=== PATIENT | male | born 1965 | race Two or more races ===

== ENCOUNTER 2023-07-02 08:59 | Outpatient (AMB) | payer OTHER, SELFPAY ==
[2023-07-02 09:02] VITALS: BP 136/90; PULSE 61; RESP 14; TEMP 36.6; O2SAT 99; BMI 32.4
--- NOTE | 2023-07-02 09:02 | A.OFFPC_ITS ---
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 Required: No Accompanied by: Self / Same As Patient Allergies Seasonal Allergies Allergy (Intermediate, Verified 07/02/23 09:23) Nasal congestion Medication List - Last Reconciled 07/02/23 by Cristian Brand CNP fluticasone propionate 50 mcg/actuation (Allergy Relief (fluticasone)) 1 spray intranasal BID Tobacco use date assessed: 07/02/23 Dental Screening Dental Screen Date: 07/02/23 Did you have a dental visit in the last 12 months?: Yes Did you have a dental problem in the last 6 months where you did not have access to dental care?: No Was dental information given to patient?: Patient has dentist HPI HPI Comments History of Present Illness Details New patient Prior PCP:?Mony Charlton, [facility] Last office visit/CPE/labs: About 2 years Acute issue(s): Type 2 diabetes - diagnosed in 2014. He was prescribed a pill which he took for 6 months because he lost 70 lb and became healthier. His last eye exam was five years ago Respiratory symptoms -He notes that he developed severe sympt oms (sore throat, body aches, nasal congestion, cough while lying down) when he and his flew back from [place] a week ago. He tested negative for COVID. His symptoms have significantly improved. He is currently experiencing mild sore throat, and productive cough while lying down at night. He has been using Flonase and taking Mucinex and Sudafed with improvement. No headache, body aches, fever, chills, fatigue, or weakness. PMHx: Type 2 diabetes, seasonal allergies SurgHx: None FHx: Mom: HTN, DM2, asthma, HLD SocHx: Former smoker. Drinks alcohol occasionally. No recreational drugs. 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 1. Little interest or pleasure in doing things: not at all 2. Feeling down, depressed, or hopeless: not at all 3. Trouble falling or staying asleep, or sleeping too much: nearly every day 4. Feeling tired or having little energy: nearly every day 5. Poor appetite or overeating: several days 6. Feeling bad about yourself - or that you are a failure or have let yourself or your family down: not at all 7. Trouble concentrating on things, such as reading the newspaper or watching television: not at all 8. Moving or speaking so slowly that other people could have noticed. Or the opposite - being so fidgety or restless that you have been moving around a lot more than usual: not at all 9. Thoughts that you would be better off or of hurting yourself in some way: not at all Total score: 7 Depression Screening Interpretation: Positive Depression Screening Done: Yes 40194 - PHQ-9 Billing: Yes Source: Developed by Drs. Danny Freitas, Rosi Anders, Hitesh Narvaez and colleagues, with an educational neisha from [employer]. Thrive Questionnaire Date Thrive assessed: 07/02/23 I am a: Patient What is your living situation today?: I have a steady place to live Within the past 12 months, did the food you bought not last and you didn't have the money to get more?: Never true Within the past 12 months, did you worry whether your food would run out before you got money to buy more?: Never true Do you have trouble paying for medicines?: No Do you have trouble getting transportation to medical appointments?: No Do you have trouble paying your heating and electricity bill?: No Do you have trouble taking care of your child, family member or friend?: No Do you have trouble with day-to-day activities such as bathing, preparing meals, shopping, managing finances, etc.?: No Are you currently unemployed and looking for a job?: No Are you interested in more education?: No Please select the resources that you would like help with: None Currently or been in a relationship where the following occur: no concerns reported THRIVE Score: 0 AUDIT C Alcohol Use Questionnaire (AUDIT-C) 1. How often do you have a drink containing alcohol?: Monthly or less 2. How many drinks containing alcohol do you have on a typical day when you are drinking?: 1 or 2 3. How often do you have six or more drinks on one occasion?: Never Total Score: 1 WALESKA-7 AMB Questionnaire WALESKA-7 Date WALESKA - 7 assessed: 07/02/23 Feeling nervous, anxious, or on edge: 0 = Not at all Not being able to stop or control worryin = Not at all Worrying too much about different things: 1 = Several days Trouble relaxin = Several days Being so restless that it is hard to sit still: 1 = Several days Becoming easily annoyed or irritable: 0 = Not at all Feeling afraid as if something awful might happen: 0 = Not at all Total WALESKA-7 score (0-4 normal; 5-9 mild; 10-14 moderate; 15-21 severe): 3 Source: Developed by Drs. Danny Freitas, Rosi Anders, Hitesh Narvaez and colleagues, with an educational neisha from [employer]. WALESKA-7 Assessment Billing WALESKA-7 Assessment Tool: WALESKA-7 Assessment 32140 Review of Systems Const Details: Const Denies chills, Denies fatigue, Denies fever(s), Denies headache(s) and Denies weakness ENT Reports as per HPI Card Denies chest pain, Denies lightheadedness, Denies dyspnea and Denies other (Palpitations) Resp Denies cough, Denies dyspnea, Denies wheezing and Denies other ( shortness of breath) GI Denies abdominal pain, Denies melena, Denies hematochezia, Denies change in bowel habits, Denies dyspepsia and Denies nausea Denies hematuria and Denies dysuria Musc Denies abnormal gait, Denies myalgias, Denies arthralgias, Denies numbness and Denies tingling Skin/Breast Denies rash, Denies unusual bruising and Denies wounds Neuro Denies abnormal gait, Denies dizziness, Denies headache(s), Denies memory loss, Denies numbness, Denies Sensory deficit (Neuro), Denies tingling and Denies weakness Psych Denies anxiety, Denies depression, Denies memory loss Endo Denies cold intolerance, Denies fatigue, Denies heat intolerance, Denies polydipsia and Denies polyuria Aller/Immun Denies wheezing Physical exam (Primary Care) Vital Signs: Last Vital Signs Temp 98 F 07/02/23 09:02 Pulse 61 07/02/23 09:02 Resp 14 07/02/23 09:02 BP 136/90 H 07/02/23 09:02 Pulse Ox 99 07/02/23 09:02 Oxygen Delivery Method Room Air 07/02/23 09:02 BMI result Body Mass Index 32.4 Tobacco/Smoking Status: Tobacco use Status Tobacco use date assessed 07/02/23 07/02/23 09:16 Patient Tobacco Use Status Former Tobacco user 07/02/23 09:16 e-Cigarette/Vaping Use Never Used 07/02/23 09:16 PHQ-9: PHQ-9 Score PHQ-9: Total score 7 07/02/23 09:16 Depression Screening Interpretation: Positive Thrive Assessment: Date of Thrive Assessment Date Thrive assessed 07/02/23 07/02/23 09:16 Currently or been in a relationship where the following occur: no concerns reported Const Other: General: no acute distress and well developed Nutritional Appearance: well nourished Orientation/consciousness: patient oriented x3 HENMT Head: Yes normocephalic and Yes atraumatic Eyes General: appearance normal, both eyes and all related structures Pupils: Equal, round and reactive pupils present EOM: EOMs intact bilaterally Resp Effort & Inspection: normal respiratory effort Auscultation: clear to auscultation bilaterally Cardio Rate: regular rate Rhythm: regular rhythm Heart sounds: S1 normal heart sound present, S2 normal heart sound present, no gallops, no murmurs and no rubs GI Palpation (GI): No Abdominal aortic bruit present, Soft to palpation, nontender, No hepatosplenomegaly present and No Rebound tenderness present Auscultation: normal bowel sounds General: Yes no CVA tenderness Back/Spine/Pelvis Back: no CVA tenderness Cervical Spine: cervical ROM normal and No Cervical spine tenderness Thoracic/Lumbar Spine: thoraco-lumbar ROM normal, No pain with thoraco-lumbar ROM, No thoracic spinal tenderness and No lumbar spinal tenderness Extrem General: Yes normal to inspection, No edema and No calf tenderness Skin General: warm and dry. Normal skin color. Normal skin turgor Neuro General: patient oriented x3, gait normal and no focal neuro deficit Cranial nerves: Yes Equal, round and reactive pupils present Cognition (Neuro): normal cognition Gait exam (Neuro): Normal gait present Sensory Exam: No Sensory deficit (Neuro) Psych Appearance: grossly normal Affect: normal affect Attitude: cooperative Thought process: Normal thought process present Results AMB Hemoglobin A1c AMB Hemoglobin A1c 6.2 % Last Edit by PRIMO Alexandre on 07/02/23 09:2 8 Assessment and Plan Assessment & Plan (1) Type 2 diabetes mellitus: Code(s): E11.9 - Type 2 diabetes mellitus without complications Plan: Diagnosed in 2014. He was prescribed medications but never took them A1c today is 6.2%, within goal of less than 7.0% ADA diet and routine exercise encouraged Will recheck A1c in 3 months Advised to get fasting blood work done and follow-up in 1 month for an extended physical exam Referred to Ophthalmology for diabetic eye exam Return sooner with symptoms or concerns Verbalized understanding and agreed with the treatment plan (2) Elevated blood pressure reading without diagnosis of hypertension: Code(s): R03.0 - Elevated blood-pressure reading, without diagnosis of hypertension Plan: Resting blood pressure is 136/90, above goal of less than 130/80 Low-sodium diet and routine exercise encouraged Will continue to monitor Follow-up in 1 month Verbalized understanding and agreed with the plan (3) Viral upper respiratory illness: Code(s): J06.9 - Acute upper respiratory infection, unspecified Plan: Likely viral illness though possibly allergies. No exam evidence of bacterial infection Viral illness There is no antibiotic medication for viruses.? They must run their course.? Most average 5-7 days but 7-10 days is not uncommon and up to 14 days is still possible.? A cough is often the last symptom to resolve and this can last for weeks in some cases. Rest Hydrate well -? Drink plenty of fluids.? Especially water. Tylenol or ibuprofen for muscle aches, headache, fever/discomfort May take Zyrtec daily Cannot rule out COVID-19/RSV/Flu infection Nasal swab acquired and will be sent to the lab Return for new or worsening symptoms Verbalized understanding and agreed with treatment plan. (4) Laboratory tests ordered as part of a complete physical exam (CPE): Code(s): Z00.00 - Encounter for general adult medical examination without abnormal findings Plan: Fasting labs ordered in preparation of a complete physical exam. Advised to fast for at least 10 hours before getting labs drawn. May drink water Verbalized understanding and agreed with treatment plan. Orders: Orders AMB Hemoglobin A1c Today Z13.9 - Encounter for screening, unspecified SARS-CoV2/FLU/RSV Today R09.89 - Other specified symptoms and signs involving the circulatory and respiratory systems Comprehensive [place]. Panel Fast Today E11.9 - Type 2 diabetes mellitus without complications UA CC w/rflx Micro + Cult Today Z00.00 - Encounter for general adult medical examination without abnormal findings PSA, Ultra Sensitive Today E11.9 - Type 2 diabetes mellitus without complications Complete Blood Count Auto Diff Today Z00.00 - Encounter for general adult medical examination without abnormal findings Lipid Panel Today E11.9 - Type 2 diabetes mellitus without complications TSH reflex Free T4 Today Z00.00 - Encounter for general adult medical examination without abnormal findings Microalbumin, Random (w Creat) Today E11.9 - Type 2 diabetes mellitus without complications Referrals Ophthalmology Referral E11.9 - Type 2 diabetes mellitus without complications Coding Level of Care Code New Pt Level 4 (21459) Diagnoses Type 2 diabetes mellitus E11.9 Elevated blood pressure reading without diagnosis of hypertension R03.0 Viral upper respiratory illness J06.9 Laboratory tests ordered as part of a complete physical exam (CPE) Z00.00 Additional Codes WALESKA-7 Assessment Billing - WALESKA-7 Assessment Tool: WALESKA-7 Assessment 41722 ([id number])
== END 2023-07-02 09:48 | disposition home or self-care (01) ==
PROVIDERS: Visit Provider Nurse Practitioner Family
DX: E11.9 Type 2 diabetes mellitus without complications (principal); R03.0 Elevated blood-pressure reading, without diagnosis of hypertension; J06.9 Acute upper respiratory infection, unspecified
CPT/HCPCS: 83036; 99204

== ENCOUNTER 2023-07-02 09:18 | Outpatient (REF) | payer OTHER, SELFPAY ==
[2023-07-02 12:50] LABS: Influenza A PCR NEGATIVE (Negative); Influenza B PCR NEGATIVE (Negative); Resp Syncy Virus RNA Qual PCR NEGATIVE (Negative); SARS COV2 PCR INHOUSE NEGATIVE (Negative)
== END 2023-07-02 09:19 | disposition home or self-care (01) ==
LOC: HO.LAB 09:18
PROVIDERS: Visit Provider Nurse Practitioner Family
DX: R09.89 Other specified symptoms and signs involving the circulatory and respiratory systems (principal)
CPT/HCPCS: 0241U

== ENCOUNTER 2023-07-06 07:17 | Outpatient (REF) | payer OTHER, SELFPAY ==
[2023-07-06 11:29] LABS: MANUAL DIFF FLAG NO
[2023-07-06 11:35] LABS: Basophils Absolute Auto 0.1 X10*3/uL (0.0-0.2); Eosinophils Absolute Auto 0.1 X10*3/uL (0.0-0.4); Eosinophils Percent Auto 2.7 % (0-4); Hematocrit 47.2 % (42.0-52.0); Hemoglobin 16.8 g/dl (14.0-18.0); Imm Gran Abs Auto 0.07 X10*3/uL (0.00-0.03); Imm Gran Pct Auto 1.5 % (0.0-0.4); Lymphocytes Absolute Auto 2.1 X10*3/uL (1.2-4.9); Lymphocytes Percent Auto 43.1 % (20-40); Mean Corpuscular HGB Conc 35.6 g/dl (31.0-36.0); Mean Corpuscular Hemoglobin 29.9 pg (27.0-33.0); Mean Platelet Volume 9.9 fL (9.4-12.4); Monocytes Absolute Auto 0.5 X10*3/uL (0.1-1.2); Monocytes Percent Auto 9.8 % (2-11); Neutrophils Percent Auto 41.9 % (45-73); Platelet Count 298 X10*3/uL (160-400); Red Blood Count 5.62 X10*6/uL (4.60-5.80); Red Cell Distribution Width 12.2 % (11.0-16.0); White Blood Count 4.8 X10*3/uL (4.8-10.8)
[2023-07-06 11:37] LABS: Appearance Urine Clear; Color Urine Yellow; Glucose Urine UA Negative (Negative); Leukocyte Esterase Urine Negative (Negative); Nitrite Urine Negative (Negative); PH 5.5 (5.0-9.0); Specific Gravity - Urine 1.025 (1.005-1.025); Urine Blood Negative (Negative); Urine Ketones Negative (Negative); Urine Protein Negative (Neg-Trace)
[2023-07-06 12:03] LABS: Alanine Aminotransferase 39 U/L (0-40); Albumin Level 4.1 g/dL (3.5-5.0); Alkaline Phosphatase 73 U/L (39-117); Anion Gap 11 (12-20); Aspartate Amino Transferase 26 U/L (5-37); Bilirubin Total 0.8 mg/dL (0.0-1.0); Blood Urea Nitrogen 19 mg/dL (9-16); Carbon Dioxide 25 mmol/L (22-29); Chloride 107 mmol/L (96-108); Cholesterol 175 mg/dL (<200); Estimated Glomerular Filt Rate > 60; Glucose Fasting 132 mg/dL (60-99); HDL Cholesterol 39 mg/dL (>40); LDL Cholesterol Calculated 117 mg/dL (<100); Potassium 4.2 mmol/L (3.3-5.1); Sodium 139 mmol/L (135-145); Total Protein 7.1 g/dL (6.5-8.0); Triglycerides 95 mg/dL (<150)
[2023-07-06 12:05] LABS: TSH reflex Free T4 0.84 uIU/mL (0.32-4.0)
[2023-07-06 13:08] LABS: Creatinine Urine 193.05 mg/dL; Microalbum/Creatinine Ratio Ur 4.6 ug/mg cr (<30)
[2023-07-11 20:32] LABS: PSA, Ultra Sensitive 0.42 ng/mL
== END 2023-07-06 07:18 | disposition home or self-care (01) ==
LOC: HO.WFDLDS 07:17
PROVIDERS: Visit Provider Nurse Practitioner Family
DX: Z00.00 Encounter for general adult medical examination without abnormal findings (principal); Z12.5 Encounter for screening for malignant neoplasm of prostate; E11.9 Type 2 diabetes mellitus without complications
CPT/HCPCS: 36415; 80053; 80061; 81003; 82043; 82570; 84153; 84443; 85025

== ENCOUNTER 2023-08-13 10:39 | Outpatient (AMB) | payer OTHER, SELFPAY ==
--- NOTE | 2023-08-13 10:43 | MHC.PC.OV ---
Vital Signs 08/13/23 10:44 08/13/23 10:49 08/13/23 11:15 Height 5 ft 10 in Weight 226 lb BMI 32.4 BP 140/70 H 130/70 120/72 Blood Pressure Location Rt brachial Rt brachial Rt brachial Position Sitting Sitting Sitting Pulse 57 Pulse Source Pulse Oximeter Pulse Oximetry (%) 97 Oxygen Delivery Method Room Air Intake Visit Reasons: CPE labs review Intake Note: Patient is here to follow up on CPE Lab review. Bariatric Physician Required: No [employer] Member: Not Required per policy Accompanied by: Self / Same As Patient Allergies Seasonal Allergies Allergy (Intermediate, Verified 08/13/23 11:03) Nasal congestion Tobacco use date assessed: 08/13/23 Dental Screening Dental Screen Date: 07/02/23 Did you have a dental visit in the last 12 months?: No Did you have a dental problem in the last 6 months where you did not have access to dental care?: Yes Was dental information given to patient?: Patient has dentist HPI HPI Comments History of Present Illness Details 58-year-old male presents for an extended physical exam and recent labs review. He has h/o diabetes which is well controlled. He is not currently on medication for his diabetes. He reports pain to his left upper molar with left jaw swelling for the past few days for which he has a dental appointment appointment today He also reports chronic persistent low back pain for the past 7 years. 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 He occasionally takes Tylenol with minimal relief. Last colonoscopy was over 10 years ago: benign polyps He has not had the shingles vaccines He is up-to-date on the flu vaccine [facility] Medical History (Updated 08/13/23 @ 11:38 by Cristian Brand CNP) Back disorder Type 2 diabetes mellitus Sinusitis Surgical History No pertinent past surgical history Family History Mother Asthma High blood pressure High cholesterol Diabetes Other Type 2 diabetes mellitus Social History Housing: House Patient Tobacco Use Status: Former Tobacco user e-Cigarette/Vaping Use: Never Used Second Hand Smoke Exposure: Yes service: No Current occupational status: employed 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 Danny Freitas, Rosi Anders, Hitesh Narvaez and colleagues, with an educational neisha from [employer]. Review of Systems Const Details: Denies chills, Denies fatigue, Denies fever(s), Denies headache(s) and Denies weakness HEENT Reports dental pain, Denies change in vision, Denies dizziness, Denies headache(s), Denies hearing loss, Denies nasal congestion, Denies sinus pain, Denies sinus pressure and Denies sore throat Card Denies chest pain, Denies lightheadedness, Denies dyspnea and Denies other (palpitations) Resp Denies cough, Denies dyspnea and Denies wheezing GI Denies abdominal pain, Denies melena, Denies hematochezia, Denies change in bowel habits, Denies dyspepsia and Denies nausea Denies hematuria and Denies dysuria Musc Reports low back pain, Denies abnormal gait, Denies numbness and Denies tingling Skin/Breast Denies rash, Denies unusual bruising and Denies wounds Neuro Denies abnormal gait, Denies dizziness, Denies headache(s), Denies memory loss, Denies numbness, Denies Sensory deficit (Neuro), Denies tingling and Denies weakness Psych Denies anxiety, Denies depression and Denies memory loss Endo Denies cold intolerance, Denies fatigue, Denies heat intolerance, Denies polydipsia and Denies polyuria Fadi/Lymph Denies easy bleeding and Denies easy bruising Aller/Immun Denies wheezing Physical exam (Primary Care) Vital Signs: Last Vital Signs Pulse 57 08/13/23 10:44 BP 130/70 08/13/23 10:49 Pulse Ox 97 08/13/23 10:44 Oxygen Delivery Method Room Air 08/13/23 10:44 BMI result Body Mass Index 32.4 Tobacco/Smoking Status: Tobacco use Status Tobacco use date assessed 08/13/23 08/13/23 10:50 Patient Tobacco Use Status Former Tobacco user 08/13/23 10:50 e-Cigarette/Vaping Use Never Used 08/13/23 10:50 Thrive Assessment: Date of Thrive Assessment Date Thrive assessed 07/02/23 08/13/23 10:50 Const Other: General: no acute distress, well developed, alert and awake Nutritional Appearance: well nourished Orientation/consciousness: patient oriented x3 HENMT Head: Yes normocephalic and Yes atraumatic Ears: hearing grossly normal bilaterally and TM's normal bilaterally General nose exam: Normal external nose present and Normal nares present Mouth: Normal oral and palatal mucosa present and moist mucous membranes Teeth and gingiva: dentition normal except for decay to #16 with slight gum and left jaw swelling Throat: Yes oropharynx normal Eyes Pupils: Equal, round and reactive pupils present and Pupil accommodation reflex normal EOM: EOMs intact bilaterally Neck Neck: Yes normal visual inspection, Yes no lymphadenopathy and Yes trachea midline Thyroid: Thyroid normal Carotids: no bruits Lymphatic: no lymphadenopathy noted Chest Chest palpation & inspection: normal inspection of the chest Resp Effort & Inspection: normal respiratory effort Auscultation: clear to auscultation bilaterally Cardio Rate: regular rate Rhythm: regular rhythm Heart sounds: S1 normal heart sound present, S2 normal heart sound present, no gallops, no murmurs and no rubs Bruits: no abdominal aortic bruits and no carotid bruits GI Palpation (GI): No Abdominal aortic bruit present, Soft to palpation, nontender, No hepatosplenomegaly present and No Rebound tenderness present Auscultation: normal bowel sounds General: Yes no CVA tenderness Back/Spine/Pelvis Back: no CVA tenderness Cervical Spine: cervical ROM normal and No Cervical spine tenderness Thoracic/Lumbar Spine: thoraco-lumbar ROM normal, No pain with thoraco-lumbar ROM, No thoracic spinal tenderness and positive lumbar spinal tenderness Skin General: warm and dry. Normal skin color. Normal skin turgor Lesions: no lesions Rashes: no rashes Trauma: no lacerations or abrasions Wounds: no wounds Nails: normal Neuro General: patient oriented x3, gait normal and CN's II-XI intact bilaterally Cranial nerves: Yes Equal, round and reactive pupils present Cognition (Neuro): normal cognition Gait exam (Neuro): Normal gait present Motor exam (neuro): 5/5 motor strength present throughout Sensory Exam: No Sensory deficit (Neuro) Deep tendon reflexes (DTR's): Right patellar reflex intensity grade: 2+ and Left patellar reflex intensity grade: 2+ Extrem General: Yes normal to inspection, No edema and No calf tenderness Psych Appearance: grossly normal Affect: normal affect Attitude: cooperative Thought process: Normal thought process present Assessment and Plan Assessment & Plan (1) Normal physical examination, routine: Code(s): Z00.00 - Encounter for general adult medical examination without abnormal findings Plan: Normal physical exam of 58-year-old male, no significant physical restrictions or limitations noted Healthy diet and routine exercise encouraged Encouraged to get vaccinated for shingles. He may request the vaccine from the local pharmacy Recent labs reviewed. LDL is 117, slightly above goal of less than 100, HDL is slightly low, 39. Advised to limit foods high in saturated fat and avoid foods high in trans fat Follow-up in 3 months for diabetes or return sooner with symptoms or concerns Verbalized understanding and agreed with treatment plan (2) Chronic low back pain: Code(s): M54.50 - Low back pain, unspecified; G89.29 - Other chronic pain Plan: Chronic persistent low back pain x7 years Likely due to prolonged standing and lifting heavy object from work Naproxen 500 mg twice daily as needed ordered. Advised to take as prescribed. Instructed on the risks, benefits, and potential adverse reactions of the medication Encouraged to avoid prolonged standing or heavy lifting Weight loss encouraged Instructed on proper body mechanics while lifting Warm/cool compresses encouraged X-ray ordered Follow-up with worsening or new symptoms Verbalized understanding and agreed with treatment plan (3) Toothache: Code(s): K08.89 - Other specified disorders of teeth and supporting structures Plan: Pain to his upper left molar for the past few days dentition normal except for decay to #16 with slight gum and left jaw swelling noted Advised to follow-up with dental as planned today Follow-up as needed Verbalized understanding and agreed with the treatment plan (4) Colon cancer screening: Code(s): Z12.11 - Encounter for screening for malignant neoplasm of colon Plan: Last colonoscopy was over 10 years ago: benign polyps Referred to [facility] gastroenterology for a colonoscopy Orders: Orders XR lumbar spine 2-3V Today G89.29 - Other chronic pain, M54.50 - Low back pain, unspecified Referrals Gastroenterology Referral Z12.11 - Encounter for screening for malignant neoplasm of colon Medications: New naproxen 500 mg PO BID PRN 60 tabs 3RF pain Coding Level of Care Code Est Pt Level 4 (59027) Est Pt Prev Care 40-64y(79524) Diagnoses Normal physical examination, routine Z00.00 Chronic low back pain M54.50; G89.29 Toothache K08.89 Colon cancer screening Z12.11
[2023-08-13 10:44] VITALS: BP 140/70; PULSE 57; O2SAT 97; BMI 32.4
[2023-08-13 10:49] VITALS: BP 130/70
[2023-08-13 11:15] VITALS: BP 120/72
== END 2023-08-13 11:29 | disposition home or self-care (01) ==
PROVIDERS: Visit Provider Nurse Practitioner Family
DX: Z00.00 Encounter for general adult medical examination without abnormal findings (principal); M54.50 Low back pain, unspecified; G89.29 Other chronic pain; K08.89 Other specified disorders of teeth and supporting structures; Z12.11 Encounter for screening for malignant neoplasm of colon
CPT/HCPCS: 99214; 99396

== ENCOUNTER 2023-11-23 07:48 | Outpatient (AMB) | payer OTHER, SELFPAY ==
--- NOTE | 2023-11-23 08:01 | MHC.PC.OV ---
Vital Signs 11/23/23 08:09 11/23/23 08:31 Height 5 ft 10 in Weight 229 lb 2 oz BMI 32.9 BP 138/82 130/80 Blood Pressure Location Lt brachial Lt brachial Position Sitting Sitting Respiration 16 Pulse 51 Pulse Source Pulse Oximeter Temp 98.8 F Temp Source Oral Pulse Oximetry (%) 95 Oxygen Delivery Method Room Air Intake Visit Reasons: a1c 3 denita dm Intake Note: patient here for 3 month follow up on DM. 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 He has not been exercising He offers no complaints and denies acute symptoms at this time [facility] Medical History (Updated 08/13/23 @ 11:38 by Cristian Brand CNP) Back disorder Type 2 diabetes mellitus Sinusitis Surgical History No pertinent past surgical history Family History Mother Asthma High blood pressure High cholesterol Diabetes Other Type 2 diabetes mellitus Social History Housing: House Patient Tobacco Use Status: Former Tobacco user e-Cigarette/Vaping Use: Never Used Second Hand Smoke Exposure: Yes service: No Current occupational status: employed Current occupation: [employer] for [employer] Cognitive needs: No Hearing needs: No Vision needs: Yes Questionnaire PHQ-9 Over the last 2 weeks, how often have you been bothered by any of the following problems? 1. Little interest or pleasure in doing things: not at all 2. Feeling down, depressed, or hopeless: not at all 3. Trouble falling or staying asleep, or sleeping too much: nearly every day 4. Feeling tired or having little energy: not at all 5. Poor appetite or overeating: not at all 6. Feeling bad about yourself - or that you are a failure or have let yourself or your family down: not at all 7. Trouble concentrating on things, such as reading the newspaper or watching television: not at all 8. Moving or speaking so slowly that other people could have noticed. Or the opposite - being so fidgety or restless that you have been moving around a lot more than usual: not at all 9. Thoughts that you would be better off or of hurting yourself in some way: not at all Total score: 3 Depression Screening Interpretation: Negative Depression Screening Done: Yes 28989 - PHQ-9 Billing: Yes Source: Developed by Drs. Danny Freitas, Rosi Anders, Hitesh Narvaez and colleagues, with an educational neisha from [employer]. Thrive Questionnaire Date Thrive assessed: 07/02/23 WALESKA-7 AMB Questionnaire WALESKA-7 Date WALESKA - 7 assessed: 07/02/23 Source: Developed by Drs. Danny Freitas, Rosi Anders, Hitesh Narvaez and colleagues, with an educational neisha from [employer]. Review of Systems Const Details: Const Denies chills, Denies fatigue, Denies fever(s), Denies headache(s) and Denies weakness ENT Denies dizziness and Denies headache(s) Card Denies chest pain, Denies lightheadedness, Denies dyspnea and Denies other (Palpitations) Resp Denies cough, Denies dyspnea, Denies wheezing and Denies other ( shortness of breath) GI Denies abdominal pain, Denies melena, Denies hematochezia, Denies change in bowel habits, Denies dyspepsia and Denies nausea Denies hematuria and Denies dysuria Musc Denies abnormal gait, Denies myalgias, Denies arthralgias, Denies numbness and Denies tingling Skin/Breast Denies rash, Denies unusual bruising and Denies wounds Neuro Denies abnormal gait, Denies dizziness, Denies headache(s), Denies memory loss, Denies numbness, Denies Sensory deficit (Neuro), Denies tingling and Denies weakness Psych Denies anxiety, Denies depression, Denies memory loss Endo Denies cold intolerance, Denies fatigue, Denies heat intolerance, Denies polydipsia and Denies polyuria Aller/Immun Denies wheezing Physical exam (Primary Care) Vital Signs: Last Vital Signs Temp 98.8 F 11/23/23 08:09 Pulse 51 11/23/23 08:09 Resp 16 11/23/23 08:09 BP 130/80 11/23/23 08:31 Pulse Ox 95 11/23/23 08:09 Oxygen Delivery Method Room Air 11/23/23 08:09 BMI result Body Mass Index 32.9 Tobacco/Smoking Status: Tobacco use Status Tobacco use date assessed 11/23/23 11/23/23 08:08 Patient Tobacco Use Status Former Tobacco user 11/23/23 08:01 e-Cigarette/Vaping Use Never Used 11/23/23 08:01 PHQ-9: PHQ-9 Score PHQ-9: Total score 3 11/23/23 08:14 Depression Screening Interpretation: Negative Thrive Assessment: Date of Thrive Assessment Date Thrive assessed 07/02/23 11/23/23 08:01 Const Other: General: no acute distress and well developed Nutritional Appearance: well nourished Orientation/consciousness: patient oriented x3 HENMT Head: Yes normocephalic and Yes atraumatic Eyes General: appearance normal, both eyes and all related structures Pupils: Equal, round and reactive pupils present EOM: EOMs intact bilaterally Resp Effort & Inspection: normal respiratory effort Auscultation: clear to auscultation bilaterally Cardio Rate: regular rate Rhythm: regular rhythm Heart sounds: S1 normal heart sound present, S2 normal heart sound present, no gallops, no murmurs and no rubs GI Palpation (GI): No Abdominal aortic bruit present, Soft to palpation, nontender, No hepatosplenomegaly present and No Rebound tenderness present Auscultation: normal bowel sounds General: Yes no CVA tenderness Back/Spine/Pelvis Back: no CVA tenderness Cervical Spine: cervical ROM normal and No Cervical spine tenderness Thoracic/Lumbar Spine: thoraco-lumbar ROM normal, No pain with thoraco-lumbar ROM, No thoracic spinal tenderness and No lumbar spinal tenderness Extrem General: Yes normal to inspection, No edema and No calf tenderness Skin General: warm and dry. Normal skin color. Normal skin turgor Neuro General: patient oriented x3, gait normal and no focal neuro deficit Cranial nerves: Yes Equal, round and reactive pupils present Cognition (Neuro): normal cognition Gait exam (Neuro): Normal gait present Sensory Exam: No Sensory deficit (Neuro) Psych Appearance: grossly normal Affect: normal affect Attitude: cooperative Thought process: Normal thought process present Results AMB Hemoglobin A1c AMB Hemoglobin A1c 5.9 % Last Edit by Deepa Carcamo on 11/23/23 10:46 Results Reviewed Results Reviewed: Laboratory Last Values Hgb A1c (Clinic) 5.9 % (4.0-6.0) 11/23/23 08:33 Assessment and Plan Assessment & Plan (1) Type 2 diabetes mellitus: Code(s): E11.9 - Type 2 diabetes mellitus without complications Plan: A1c today is 5.9%, within goal of less than 7.0%. Previous A1c was 6.2% ADA and low-sodium diet and routine exercise encouraged Advised to fast for 10-12 hours, may drink water only, and get lipid panel blood work done before his next visit Follow-up in three months or sooner with symptoms or concerns Verbalized understanding and agreed with treatment plan Orders: Orders Lipid Panel 3 Months E11.9 - Type 2 diabetes mellitus without complications AMB Hemoglobin A1c Today Z13.9 - Encounter for screening, unspecified Coding Level of Care Code Est Pt Level 3 (66502) Diagnoses Type 2 diabetes mellitus E11.9
[2023-11-23 08:09] VITALS: BP 138/82; PULSE 51; RESP 16; TEMP 37.1; O2SAT 95; BMI 32.9
[2023-11-23 08:31] VITALS: BP 130/80
== END 2023-11-23 08:32 | disposition home or self-care (01) ==
PROVIDERS: Visit Provider Nurse Practitioner Family
DX: E11.9 Type 2 diabetes mellitus without complications (principal); Z13.9 Encounter for screening, unspecified
CPT/HCPCS: 83036; 99213

== ENCOUNTER 2023-12-24 07:47 | Outpatient (REF) | payer OTHER, SELFPAY ==
[2023-12-24 12:00] LABS: Cholesterol 161 mg/dL (<200); HDL Cholesterol 43 mg/dL (>40); LDL Cholesterol Calculated 98 mg/dL (<100); Triglycerides 100 mg/dL (<150)
== END 2023-12-24 07:48 | disposition home or self-care (01) ==
LOC: HO.WFDLDS 07:47
PROVIDERS: Visit Provider Nurse Practitioner Family
DX: E11.9 Type 2 diabetes mellitus without complications (principal)
CPT/HCPCS: 36415; 80061

== ENCOUNTER 2024-02-25 08:17 | Outpatient (AMB) | payer OTHER, SELFPAY ==
--- NOTE | 2024-02-25 08:20 | MHC.PC.OV ---
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 Allergies Seasonal Allergies Allergy (Intermediate, Verified 02/25/24 08:46) Nasal congestion Medication List - Last Reconciled 02/25/24 by Cristian Brand CNP fluticasone propionate 50 mcg/actuation (Allergy Relief (fluticasone)) 1 spray intranasal BID naproxen 500 mg PO BID PRN Tobacco use date assessed: 02/25/24 Dental Screening Dental Screen Date: 02/25/24 Did you have a dental visit in the last 12 months?: Yes Did you have a dental problem in the last 6 months where you did not have access to dental care?: No Was dental information given to patient?: Patient has dentist HPI HPI Comments History of Present Illness Details The patient is a 58-year-old male presenting for follow-up of Type 2 Diabetes Mellitus, which is currently diet-controlled. The patient's last hemoglobin A1c was 5.9%, and the current reading is 6.2%, maintaining below the target of 7.0%. He is not on medication for diabetes management. The patient has expressed difficulty in controlling dietary intake, particularly with bread, pasta, and potatoes. He admitted to not regularly exercising and is concerned about maintaining lifestyle changes during the holiday season due to increased social gatherings and related dietary temptations. Additionally, the patient reports musculoskeletal chest pain localized to the left upper chest area. 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 The pain is alleviated to some extent by taking Naproxen and using warm compresses. The patient denies this being related to cardiac origin. 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 - Exercise: Not currently exercising. - Nutritional Intake: Difficulty in controlling intake of carbohydrates such as bread, pasta, and potatoes; consumes salads and fruits like grapes. - Family: Lives with , who recently hosted a gathering, leading to dietary challenges due to leftovers. Results - Labs: Hemoglobin A1c is 6.2%. 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 1. Little interest or pleasure in doing things: nearly every day 2. Feeling down, depressed, or hopeless: not at all 3. Trouble falling or staying asleep, or sleeping too much: nearly every day 4. Feeling tired or having little energy: nearly every day 5. Poor appetite or overeating: not at all 6. Feeling bad about yourself - or that you are a failure or have let yourself or your family down: not at all 7. Trouble concentrating on things, such as reading the newspaper or watching television: not at all 8. Moving or speaking so slowly that other people could have noticed. Or the opposite - being so fidgety or restless that you have been moving around a lot more than usual: not at all 9. Thoughts that you would be better off or of hurting yourself in some way: not at all Total score: 9 Depression Screening Interpretation: Positive Depression Screening Done: Yes Source: Developed by Drs. Danny Freitas, Rosi Anders, Hitesh Narvaez and colleagues, with an educational neisha from [employer]. Thrive Questionnaire Date Thrive assessed: 02/25/24 I am a: Patient What is your living situation today?: I have a steady place to live Within the past 12 months, did the food you bought not last and you didn't have the money to get more?: I choose not to answer this question Within the past 12 months, did you worry whether your food would run out before you got money to buy more?: I choose not to answer this question Do you have trouble paying for medicines?: I choose not to answer this question Do you have trouble getting transportation to medical appointments?: I choose not to answer this question Do you have trouble paying your heating and electricity bill?: I choose not to answer this question Do you have trouble taking care of your child, family member or friend?: I choose not to answer this question Do you have trouble with day-to-day activities such as bathing, preparing meals, shopping, managing finances, etc.?: I choose not to answer this question Are you currently unemployed and looking for a job?: I choose not to answer this question Are you interested in more education?: I choose not to answer this question Please select the resources that you would like help with: None Currently or been in a relationship where the following occur: I choose not to answer THRIVE Score: 0 AUDIT C Alcohol Use Questionnaire (AUDIT-C) 1. How often do you have a drink containing alcohol?: Monthly or less 2. How many drinks containing alcohol do you have on a typical day when you are drinking?: 1 or 2 3. How often do you have six or more drinks on one occasion?: Never Total Score: 1 WALESKA-7 AMB Questionnaire WALESKA-7 Date WALESKA - 7 assessed: 02/25/24 Feeling nervous, anxious, or on edge: 0 = Not at all Not being able to stop or control worryin = Not at all Worrying too much about different things: 0 = Not at all Trouble relaxin = Not at all Being so restless that it is hard to sit still: 0 = Not at all Becoming easily annoyed or irritable: 0 = Not at all Feeling afraid as if something awful might happen: 0 = Not at all Total WALESKA-7 score (0-4 normal; 5-9 mild; 10-14 moderate; 15-21 severe): 0 Source: Developed by Drs. Danny Freitas, Rosi Anders, Hitesh Narvaez and colleagues, with an educational neisha from [employer]. Review of Systems Const Details: Const Denies chills, Denies fatigue, Denies fever(s), Denies headache(s) and Denies weakness ENT Denies dizziness and Denies headache(s) Card Reports chest pain, Denies lightheadedness, Denies dyspnea and Denies other (Palpitations) Resp Denies cough, Denies dyspnea, Denies wheezing and Denies other ( shortness of breath) GI Denies abdominal pain, Denies melena, Denies hematochezia, Denies change in bowel habits, Denies dyspepsia and Denies nausea Denies hematuria and Denies dysuria Musc Reports as per HPI Skin/Breast Denies rash, Denies unusual bruising and Denies wounds Neuro Denies abnormal gait, Denies dizziness, Denies headache(s), Denies memory loss, Denies numbness, Denies Sensory deficit (Neuro), Denies tingling and Denies weakness Psych Denies anxiety, Denies depression, Denies memory loss Endo Denies cold intolerance, Denies fatigue, Denies heat intolerance, Denies polydipsia and Denies polyuria Aller/Immun Denies wheezing Physical exam (Primary Care) Vital Signs: Last Vital Signs Temp 98.4 F 02/25/24 08:25 Pulse 60 02/25/24 08:25 Resp 16 02/25/24 08:25 BP 121/78 02/25/24 08:25 Pulse Ox 96 02/25/24 08:25 Oxygen Delivery Method Room Air 02/25/24 08:25 BMI result Body Mass Index 33.6 Tobacco/Smoking Status: Tobacco use Status Tobacco use date assessed 02/25/24 02/25/24 08:29 Patient Tobacco Use Status Former Tobacco user 02/25/24 08:24 e-Cigarette/Vaping Use Never Used 02/25/24 08:24 PHQ-9: PHQ-9 Score PHQ-9: Total score 9 02/25/24 08:46 Depression Screening Interpretation: Positive Thrive Assessment: Date of Thrive Assessment Date Thrive assessed 02/25/24 02/25/24 08:24 Currently or been in a relationship where the following occur: I choose not to answer Const Other: General: no acute distress and well developed Nutritional Appearance: well nourished Orientation/consciousness: patient oriented x3 HENMT Head: Yes normocephalic and Yes atraumatic Eyes General: appearance normal, both eyes and all related structures Pupils: Equal, round and reactive pupils present EOM: EOMs intact bilaterally Resp Effort & Inspection: normal respiratory effort Auscultation: clear to auscultation bilaterally Cardio Rate: regular rate Rhythm: regular rhythm Heart sounds: S1 normal heart sound present, S2 normal heart sound present, no gallops, no murmurs and no rubs GI Palpation (GI): No Abdominal aortic bruit present, Soft to palpation, nontender, No hepatosplenomegaly present and No Rebound tenderness present Auscultation: normal bowel sounds General: Yes no CVA tenderness Back/Spine/Pelvis Back: no CVA tenderness Cervical Spine: cervical ROM normal and No Cervical spine tenderness Thoracic/Lumbar Spine: thoraco-lumbar ROM normal, No pain with thoraco-lumbar ROM, No thoracic spinal tenderness and No lumbar spinal tenderness Extrem General: Yes normal to inspection, No edema and No calf tenderness Skin General: warm and dry. Normal skin color. Normal skin turgor Neuro General: patient oriented x3, gait normal and no focal neuro deficit Cranial nerves: Yes Equal, round and reactive pupils present Cognition (Neuro): normal cognition Gait exam (Neuro): Normal gait present Sensory Exam: No Sensory deficit (Neuro) Psych Appearance: grossly normal Affect: normal affect Attitude: cooperative Thought process: Normal thought process present Results AMB Hemoglobin A1c AMB Hemoglobin A1c 6.2 % Last Edit by Deepa Carcamo on 02/25/24 08:51 Coding Level of Care Code Est Pt Level 4 (01055) Complex EM visit Add On G2211 Diagnoses Type 2 diabetes mellitus E11.9 Musculoskeletal chest pain R07.89 Assessment & Plan Assessment & Plan (1) Type 2 diabetes mellitus: Code(s): E11.9 - Type 2 diabetes mellitus without complications Category: Medical Plan: Continue current dietary management for diabetes. Encourage making healthier dietary choices and engage in regular physical exercise. Schedule follow-up in three months to re-evaluate hemoglobin A1c. Consider stricter interventions if A1c reaches 7% or above. (2) Musculoskeletal chest pain: Code(s): R07.89 - Other chest pain Category: Medical Plan: Continue with Naproxen and physical therapy involving warm compresses and stretching exercises to alleviate pain. Advise using massage tools for symptomatic relief as necessary. Monitor the condition and reassess if symptoms persist or worsen. Plan I discussed with the patient the importance of maintaining dietary control and the need to incorporate regular physical activity to manage his Type 2 Diabetes Mellitus effectively. We outlined dietary options that are low in carbohydrates and discussed preparation methods to make these choices more feasible, especially during the holidays. I emphasized the need to adhere to the management plan and the potential consequences of not achieving these goals, including the possible need for medication if the hemoglobin A1c increases. Regarding the musculoskeletal pain, we discussed the probable non-cardiac origin due to the location and improvement with Naproxen and physical therapy. I reassured the patient about the nature of the injury and the continued use of the recommended interventions. A return visit in three months was advised, or sooner if there is any change in symptoms. Orders: Orders AMB Hemoglobin A1c Today Z13.9 - Encounter for screening, unspecified Patient Instructions: - Follow a balanced diet low in carbohydrates, particularly avoiding excessive bread, pasta, and potatoes. - Incorporate regular physical activity into the daily routine. - Continue using Naproxen and warm compresses for chest pain relief. - Avoid activities that aggravate the chest pain. - Return for follow-up in three months, or sooner if there are changes in symptoms or concerns arise. - Monitor blood glucose levels and report any significant changes. Patient was informed and verbally consented to the use of an ambient scribe for clinic note documentation during this visit.
[2024-02-25 08:25] VITALS: BP 121/78; PULSE 60; RESP 16; TEMP 36.9; O2SAT 96; BMI 33.6
== END 2024-02-25 08:58 | disposition home or self-care (01) ==
PROVIDERS: PCP Nurse Practitioner Family; Visit Provider Nurse Practitioner Family
DX: E11.9 Type 2 diabetes mellitus without complications (principal); R07.89 Other chest pain; Z13.9 Encounter for screening, unspecified

== ENCOUNTER → 2024-02-25 08:17 | Outpatient (BNVA) | payer OTHER, SELFPAY | PROVIDERS: Visit Provider Nurse Practitioner Family | DX: E11.9 Type 2 diabetes mellitus without complications (principal); R07.89 Other chest pain | CPT/HCPCS: 83036; 96127; 99212 ==

== ENCOUNTER → 2024-05-05 10:51 | Outpatient (BNVA) | payer OTHER, SELFPAY | PROVIDERS: PCP Nurse Practitioner Family; Visit Provider Nurse Practitioner Family | DX: Z12.11 Encounter for screening for malignant neoplasm of colon (principal) | CPT/HCPCS: 99202 ==

== ENCOUNTER 2024-05-28 08:16 | Outpatient (AMB) | payer OTHER, SELFPAY ==
--- NOTE | 2024-05-28 08:32 | MHC.PC.OV ---
Vital Signs 05/28/24 08:58 05/28/24 09:26 Height 5 ft 10 in Weight 232 lb BMI 33.3 BP 140/76 H 138/80 Blood Pressure Location Rt brachial Lt brachial Position Sitting Sitting Respiration 16 Pulse 67 Pulse Source Pulse Oximeter Temp 98.5 F Temp Source Oral Pulse Oximetry (%) 96 Oxygen Delivery Method Room Air Intake Visit Reasons: 3 mos DM Intake Note: patient here for DM follow up and would like an ENT referral Alley Cleaner Required: No Allergies Seasonal Allergies Allergy (Intermediate, Verified 05/28/24 09:19) Nasal congestion Medication List - Last Reconciled 05/28/24 by Cristian Brand CNP bisacodyl (Dulcolax (bisacodyl)) 20 mg (4 x 5 mg) PO ONCE 1 day naproxen 500 mg PO BID PRN polyethylene glycol 3350 (Miralax) 238 grams PO ONCE Tobacco use date assessed: 05/28/24 Dental Screening Dental Screen Date: 05/28/24 Did you have a dental visit in the last 12 months?: Yes Did you have a dental problem in the last 6 months where you did not have access to dental care?: No Was dental information given to patient?: Patient has dentist HPI HPI Comments History of Present Illness Details 59-year-old male presents for diabetes follow-up. His diabetes is diet controlled. He admits to making healthy dietary choices, including low carbs, and exercising routinely. He reports sinus infection with nasal congestion and dry nares at least once a year. No acute symptoms at this time. 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 1. Little interest or pleasure in doing things: not at all 2. Feeling down, depressed, or hopeless: not at all 3. Trouble falling or staying asleep, or sleeping too much: not at all 4. Feeling tired or having little energy: not at all Source: Developed by Drs. Danny Freiats, Rosi Anders, Hitesh Narvaez and colleagues, with an educational neisha from [employer]. Thrive Questionnaire Date Thrive assessed: 02/18/24 I am a: Patient What is your living situation today?: I choose not to answer this question Within the past 12 months, did the food you bought not last and you didn't have the money to get more?: I choose not to answer this question Within the past 12 months, did you worry whether your food would run out before you got money to buy more?: I choose not to answer this question Do you have trouble paying for medicines?: I choose not to answer this question Do you have trouble getting transportation to medical appointments?: No Do you have trouble paying your heating and electricity bill?: No Do you have trouble taking care of your child, family member or friend?: I choose not to answer this question Do you have trouble with day-to-day activities such as bathing, preparing meals, shopping, managing finances, etc.?: I choose not to answer this question Are you currently unemployed and looking for a job?: I choose not to answer this question Are you interested in more education?: I choose not to answer this question Please select the resources that you would like help with: None Currently or been in a relationship where the following occur: I choose not to answer THRIVE Score: 0 AUDIT C Alcohol Use Questionnaire (AUDIT-C) 1. How often do you have a drink containing alcohol?: Never Total Score: 0 WALESKA-7 AMB Questionnaire WALESKA-7 Date WALESKA - 7 assessed: 02/25/24 Feeling nervous, anxious, or on edge: 0 = Not at all Not being able to stop or control worryin = Not at all Worrying too much about different things: 0 = Not at all Trouble relaxin = Not at all Being so restless that it is hard to sit still: 0 = Not at all Becoming easily annoyed or irritable: 0 = Not at all Feeling afraid as if something awful might happen: 0 = Not at all Total WALESKA-7 score (0-4 normal; 5-9 mild; 10-14 moderate; 15-21 severe): 0 Source: Developed by Drs. Danny Freitas, Rosi Anders, Hitesh Narvaez and colleagues, with an educational neisha from [employer]. Review of Systems Const Details: Const Denies chills, Denies fatigue, Denies fever(s), Denies headache(s) and Denies weakness ENT Denies dizziness and Denies headache(s) Card Denies chest pain, Denies lightheadedness, Denies dyspnea and Denies other (Palpitations) Resp Denies cough, Denies dyspnea, Denies wheezing and Denies other ( shortness of breath) GI Denies abdominal pain, Denies melena, Denies hematochezia, Denies change in bowel habits, Denies dyspepsia and Denies nausea Denies hematuria and Denies dysuria Musc Denies abnormal gait, Denies myalgias, Denies arthralgias, Denies numbness and Denies tingling Skin/Breast Denies rash, Denies unusual bruising and Denies wounds Neuro Denies abnormal gait, Denies dizziness, Denies headache(s), Denies memory loss, Denies numbness, Denies Sensory deficit (Neuro), Denies tingling and Denies weakness Psych Denies anxiety, Denies depression, Denies memory loss Endo Denies cold intolerance, Denies fatigue, Denies heat intolerance, Denies polydipsia and Denies polyuria Aller/Immun Denies wheezing Physical exam (Primary Care) Vital Signs: Last Vital Signs Temp 98.5 F 05/28/24 08:58 Pulse 67 05/28/24 08:58 Resp 16 05/28/24 08:58 BP 138/80 05/28/24 09:26 Pulse Ox 96 05/28/24 08:58 Oxygen Delivery Method Room Air 05/28/24 08:58 BMI result Body Mass Index 33.3 Tobacco/Smoking Status: Tobacco use Status Tobacco use date assessed 05/28/24 05/28/24 09:02 Patient Tobacco Use Status Former Tobacco user 05/28/24 08:37 e-Cigarette/Vaping Use Never Used 05/28/24 08:37 Thrive Assessment: Date of Thrive Assessment Date Thrive assessed 02/18/24 05/28/24 08:37 Currently or been in a relationship where the following occur: I choose not to answer Const Other: General: no acute distress and well developed Nutritional Appearance: well nourished Orientation/consciousness: patient oriented x3 HENMT Head: Yes normocephalic and Yes atraumatic Eyes General: appearance normal, both eyes and all related structures Pupils: Equal, round and reactive pupils present EOM: EOMs intact bilaterally Resp Effort & Inspection: normal respiratory effort Auscultation: clear to auscultation bilaterally Cardio Rate: regular rate Rhythm: regular rhythm Heart sounds: S1 normal heart sound present, S2 normal heart sound present, no gallops, no murmurs and no rubs GI Palpation (GI): No Abdominal aortic bruit present, Soft to palpation, nontender, No hepatosplenomegaly present and No Rebound tenderness present Auscultation: normal bowel sounds General: Yes no CVA tenderness Back/Spine/Pelvis Back: no CVA tenderness Cervical Spine: cervical ROM normal and No Cervical spine tenderness Thoracic/Lumbar Spine: thoraco-lumbar ROM normal, No pain with thoraco-lumbar ROM, No thoracic spinal tenderness and No lumbar spinal tenderness Extrem General: Yes normal to inspection, No edema and No calf tenderness Skin General: warm and dry. Normal skin color. Normal skin turgor Lesions: no lesions Rashes: no rashes Trauma: no lacerations or abrasions Wounds: no wounds Nails: normal Neuro General: patient oriented x3, gait normal and no focal neuro deficit Cranial nerves: Yes Equal, round and reactive pupils present Cognition (Neuro): normal cognition Gait exam (Neuro): Normal gait present Sensory Exam: No Sensory deficit (Neuro) Psych Appearance: grossly normal Affect: normal affect Attitude: cooperative Thought process: Normal thought process present Results AMB Hemoglobin A1c AMB Hemoglobin A1c 5.9 % Last Edit by Deepa Carcamo on 05/28/24 09:37 Results Reviewed Results Reviewed: Laboratory Last Values Hgb A1c (Clinic) 5.9 % (4.0-6.0) 05/28/24 08:30 Coding Level of Care Code Est Pt Level 3 (88283) Diagnoses Type 2 diabetes mellitus E11.9 Laboratory tests ordered as part of a complete physical exam (CPE) Z00.00 Elevated blood pressure reading without diagnosis of hypertension R03.0 Assessment & Plan Assessment & Plan (1) Type 2 diabetes mellitus: Code(s): E11.9 - Type 2 diabetes mellitus without complications Category: Medical Plan: A1c today is 5.9%, within goal of less than 7.0%. Previous A1c was 6.2%. Continue current treatment regimen. Will recheck A1c in 3 months. Advised to perform lab work 2-3 days before next visit. Follow-up in 3 months for an extended physical exam, diabetes, and labs review. Return sooner with symptoms or concerns. Verbalized understanding and agreed with treatment plan. (2) Laboratory tests ordered as part of a complete physical exam (CPE): Code(s): Z00.00 - Encounter for general adult medical examination without abnormal findings Category: Medical Plan: Fasting labs ordered as part of a complete physical exam. Advised to fast for at least 10 hours before getting labs drawn. May drink water Verbalized understanding and agreed with treatment plan. (3) Elevated blood pressure reading without diagnosis of hypertension: Code(s): R03.0 - Elevated blood-pressure reading, without diagnosis of hypertension Category: Medical Plan: Resting blood pressure is 130/80, above goal of less than 130/80. Low-sodium diet encouraged. Will continue to monitor. Verbalized understanding and agreed with the plan. Orders: Orders Complete Blood Count Auto Diff 3 Months Z00.00 - Encounter for general adult medical examination without abnormal findings Lipid Panel 3 Months Z00.00 - Encounter for general adult medical examination without abnormal findings Microalbumin, Random (w Creat) 3 Months Z00.00 - Encounter for general adult medical examination without abnormal findings Comprehensive [place]. Panel Fast 3 Months Z00.00 - Encounter for general adult medical examination without abnormal findings TSH reflex Free T4 3 Months Z00.00 - Encounter for general adult medical examination without abnormal findings UA CC w/rflx Micro + Cult 3 Months Z00.00 - Encounter for general adult medical examination without abnormal findings Vitamin D 25-OH Total 3 Months Z00.00 - Encounter for general adult medical examination without abnormal findings AMB Hemoglobin A1c Today Z13.9 - Encounter for screening, unspecified
--- OUTSIDE RECORDS SUMMARY | 2024-05-28 08:38 | XMS_ITS | Encounter Summary ---
Author Organization [employer] Address [address] [place] [address] [address] [place] [address] Care Team Providers Care Gate Agent Name Role Phone Unavailable Primary Care Provider Unavailabl e Encounter Details Date Type Department Care Team (Latest Contact Info) Description 10/06/2021 Abstract [facility] CONVERSIONS Dental, Provider, DDS Social History Tobacco Use Types Packs/Day Years Used Date Smoking Tobacco: Never Assessed Sex and Gender Information Value Date Recorded Sex Assigned at Male 01/30/2022 10:40 AM EDT Legal Sex Male 10:40 AM EDT Gender Identity Male 01/30/2022 10:40 AM EDT Sexual Orientation Straight 01/30/2022 10 :40 AM EDT documented as of this encounter Plan of Treatment Not on file documented as of this encounter Visit Diagnoses Not on filedocumented in this encounter
--- OUTSIDE RECORDS SUMMARY | 2024-05-28 08:38 | XMS_ITS | Clinical Summary ---
Author Organization [employer] Address [address] [place] [address] [address] [place] [address] Care Team Providers Care Supervisor Cereal Name Role Phone Unavailable Primary Care Provider Unavailabl e Allergies No known active allergies Medications acetaminophen (Tylenol) 500 MG tablet Take 1 tablet (500 mg) by mouth every 6 (six) hours if needed for mild pain for up to 20 doses. 20 tablet 09/04/2023 Active ibuprofen 600 MG tablet Take 1 tablet (600 mg) by mouth every 6 (six) hours if needed for mild pain for up to 20 doses. 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 Periodontal disease 08/13/2023 Social History Tobacco Use Types Packs/Day Years Used Date Smoking Tobacco: Never Passive Smoke Exposure: Never Smokeless Tobacco: Never Tobacco Cessation:Counseling Given: Not Answered Alcohol Use Standard Drinks/Week Comments Never 0 (1 standard drink = 0.6 oz pur e alcohol) Sex and Gender Information Value Date Recorded Sex Assigned at Male 01/30/2022 10:40 AM EDT Legal Sex Male 10:40 AM EDT Gender Identity Male 01/30/2022 10:40 AM EDT Sexual Orientation Straight 01/30/2022 10 :40 AM EDT Last Filed Vital Signs Vital Sign Reading Time Taken Comments Blood Pressure 120/84 09/04/2023 7:57 AM EDT Pulse 80 09/04/2023 7:57 AM EDT Temperature - - Respiratory Rate - - Oxygen Saturation - - Inhaled Oxygen Concentration - - Weight - - Height - - Body Mass Index - - Plan of Treatment Health Maintenance Due Date Last Done Comments Anal Pap 1964 CT Colonography 1964 Colonoscopy 1964 Colorectal Cancer Screening 1964 Depression Screening 1964 FIT DNA/Cologuard 1964 FIT 1964 FOBT 1964 HIV Screening 1964 Lipid Panel 1964 SDOH Screening 1964 Sigmoidoscopy 1964 Alcohol/Substance Use Screening 1976 Hepatitis C Screening 1982 DTaP/Tdap/Td Vaccines (1 - Tdap) 1983 Hepatitis A Vaccines (1 of 2 - Risk 2-dose series) 1983 Pneumococcal Vaccine: 50+ Years (1 of 1 - PCV) 2014 Zoster Vaccines (1 of 2) 2014 Dental Oral Exam 03/31/2022 09/28/2021 Dental Prophylaxis 04/09/2022 10/06/2021 Dental X-Ray: Bitewings 09/29/2022 09/28/2021, 09/28 COVID-19 Vaccine ( season) 2023 07/08/2021, 03/06/2021, 07/30/2020, Additional history exists Influenza Vaccine (#1) 2023 , 01/15/2022, 12/24/2020 Hepatitis B Vaccines (1 of 3 - Risk 3-dose series) 2024 Tobacco Screening 09/03/2024 09/04/2023 Dental X-Ray: Full Mouth 09/29/2024 09/28/2021, 09/01 RSV Patients and Patients Aged 60 years or older (1 - 1-dose 75+ series) 2039 HIB Vaccines Aged Out No longer eligi ble based on patient's age to complete this topic HPV Vaccines Aged Out No longer eligi ble based on patient's age to complete this topic IPV Vaccines Aged Out No longer eligi ble based on patient's age to complete this topic Meningococcal Vaccine Aged Out No cassie dina eligible based on patient's age to complete this topic Pneumococcal Vaccine: Pediatrics (0 to 5 Years) and At-Risk Patients (6 to 49) Years) Aged Out No longer eligible based on patient's age to complete this topic RSV under 20 months Aged Out No longe r eligible based on patient's age to complete this topic Rotavirus Vaccines Aged Out No longer eligible based on patient's age to complete this topic Procedures Procedure Name Priority Date/Time Associated Diagnosis Comments PROPHYLAXIS - ADULT Routine 10/06/2021 1 2:00 AM EDT INTRAORAL - COMPLETE SERIES OF RADIOGRAPHIC IMAGES Routine 09/28/2021 12:00 AM EDT COMPREHENSIVE ORAL EVALUATION - NEW OR ESTABLISHED PATIENT Routine 09/28/2021 12:00 AM EDT from Last 3 Months or Most Recently Relevant to Health Maintenance Insurance [facility] - HSN PARTIAL (MEDICAID)
[2024-05-28 08:58] VITALS: BP 140/76; PULSE 67; RESP 16; TEMP 36.9; O2SAT 96; BMI 33.3
[2024-05-28 09:26] VITALS: BP 138/80
== END 2024-05-28 09:29 | disposition home or self-care (01) ==
PROVIDERS: PCP Nurse Practitioner Family; Visit Provider Nurse Practitioner Family
DX: E11.9 Type 2 diabetes mellitus without complications (principal); Z00.00 Encounter for general adult medical examination without abnormal findings; R03.0 Elevated blood-pressure reading, without diagnosis of hypertension; Z13.9 Encounter for screening, unspecified

== ENCOUNTER → 2024-05-28 08:16 | Outpatient (BNVA) | payer OTHER, SELFPAY | PROVIDERS: PCP Nurse Practitioner Family; Visit Provider Nurse Practitioner Family | DX: E11.9 Type 2 diabetes mellitus without complications (principal); R03.0 Elevated blood-pressure reading, without diagnosis of hypertension | CPT/HCPCS: 83036; 99212 ==

== ENCOUNTER 2024-08-18 07:57 | Outpatient (REF) | payer OTHER, SELFPAY ==
--- OUTSIDE RECORDS SUMMARY | 2024-08-18 07:59 | XMS_ITS | Encounter Summary ---
Author Organization [employer] Address [address] [facility] [facility] [address] [place] [address] Care Team Providers Care Tonnage Compilation Clerk Name Role Phone Unavailable Primary Care Provider Unavailabl e Encounter Details Date Type Department Care Team (Latest Contact Info) Description 10/06/2021 Abstract [facility] CONVERSIONS Dental, Provider, DDS Social History [...]
--- OUTSIDE RECORDS SUMMARY | 2024-08-18 07:59 | XMS_ITS | Clinical Summary ---
Author Organization [employer] Address [address] [facility] [address] [place] [address] Care Team Providers Care Communications Professor Name Role Phone Unavailable Primary Care Provider [...] patient's age to complete this topic Meningococcal B Vaccine Aged Out No l onger eligible based on patient's age to complete [...] Most Recently Relevant to Health Maintenance Insurance [facility] - HSN PARTIAL (MEDICAID)
[2024-08-18 11:00] LABS: MANUAL DIFF FLAG NO
[2024-08-18 11:16] LABS: Appearance Urine Clear; Color Urine Yellow; Glucose Urine UA Negative (Negative); Leukocyte Esterase Urine Negative (Negative); Nitrite Urine Negative (Negative); PH 5.5 (5.0-9.0); Urine Blood Negative (Negative); Urine Ketones Negative (Negative); Urine Protein Negative (Neg-Trace)
[2024-08-18 11:23] LABS: Basophils Percent Auto 0.9 % (0-2); Eosinophils Absolute Auto 0.1 X10*3/uL (0.0-0.4); Eosinophils Percent Auto 2.7 % (0-4); Hematocrit 49.7 % (42.0-52.0); Hemoglobin 17.4 g/dl (14.0-18.0); Imm Gran Abs Auto 0.05 X10*3/uL (0.00-0.03); Imm Gran Pct Auto 1.1 % (0.0-0.4); Lymphocytes Absolute Auto 1.7 X10*3/uL (1.2-4.9); Lymphocytes Percent Auto 38.6 % (20-40); Mean Corpuscular Hemoglobin 29.8 pg (27.0-33.0); Mean Corpuscular Volume 85.1 fL (80.0-98.0); Mean Platelet Volume 11.2 fL (9.4-12.4); Monocytes Absolute Auto 0.4 X10*3/uL (0.1-1.2); Neutrophils Absolute Auto 2.1 x10*3/uL (2.0-8.3); Neutrophils Percent Auto 46.7 % (45-73); Platelet Count 262 X10*3/uL (160-400); Red Blood Count 5.84 X10*6/uL (4.60-5.80); Red Cell Distribution Width 12.6 % (11.0-16.0); White Blood Count 4.4 X10*3/uL (4.8-10.8)
[2024-08-18 11:37] LABS: Creatinine Urine 154.82 mg/dL; Microalbum/Creatinine Ratio Ur 27.7 ug/mg cr (<30)
[2024-08-18 12:04] LABS: Alanine Aminotransferase 61 U/L (0-40); Albumin Level 4.4 g/dL (3.5-5.0); Alkaline Phosphatase 71 U/L (39-117); Anion Gap 10 (12-20); Aspartate Amino Transferase 41 U/L (5-37); Blood Urea Nitrogen 14 mg/dL (9-16); Calcium 9.2 mg/dL (8.4-10.2); Carbon Dioxide 27 mmol/L (22-29); Chloride 104 mmol/L (96-108); Cholesterol 179 mg/dL (<200); Estimated Glomerular Filt Rate > 60; Glucose Fasting 129 mg/dL (60-99); HDL Cholesterol 39 mg/dL (>40); LDL Cholesterol Calculated 108 mg/dL (<100); Potassium 4.2 mmol/L (3.3-5.1); Sodium 137 mmol/L (135-145); Total Protein 7.2 g/dL (6.5-8.0); Triglycerides 162 mg/dL (<150); Vitamin D 25-OH Total 55.8 ng/mL (>30)
== END 2024-08-18 07:58 | disposition home or self-care (01) ==
LOC: HO.WFDLDS 07:57
PROVIDERS: Visit Provider Nurse Practitioner Family
DX: Z00.00 Encounter for general adult medical examination without abnormal findings (principal)
CPT/HCPCS: 36415; 80053; 80061; 81003; 82043; 82306; 82570; 84443; 85025

== ENCOUNTER 2024-08-26 07:44 | Outpatient (AMB) | payer OTHER, SELFPAY ==
--- OUTSIDE RECORDS SUMMARY | 2024-08-26 07:47 | XMS_ITS | Clinical Summary ---
Author Organization [employer] Address [address] [facility] [address] [place] [address] Care Team Providers Care Document Improvement Specialist Name Role Phone Unavailable Primary Care Provider [...] Panel 1964 SDOH Screening 1964 Sigmoidoscopy 1964 Disability Screening 1964 Alcohol/Substance Use Screening 1976 Hepatitis C [...] Most Recently Relevant to Health Maintenance Insurance [facility] DENT[facility] - HSN PARTIAL (MEDICAID)
--- NOTE | 2024-08-26 07:53 | A.OFFPC_ITS ---
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: No Allergies Seasonal Allergies Allergy (Intermediate, Verified 08/26/24 08:09) Nasal congestion Medication List - Last Reconciled 08/26/24 by Cristian Brand CNP bisacodyl (Dulcolax (bisacodyl)) 20 mg (4 x 5 mg) PO ONCE 1 day naproxen 500 mg PO BID PRN polyethylene glycol 3350 (Miralax) 238 grams PO ONCE Tobacco use date assessed: 08/26/24 Dental Screening Dental Screen Date: 08/26/24 Did you have a dental visit in the last 12 months?: No Did you have a dental problem in the last 6 months where you did not have access to dental care?: No Was dental information given to patient?: Patient has dentist HPI HPI Comments History of Present Illness Details 59-year-old male presents for an extende d physical exam. Acute issue(s) - None Past Medical History - Diet controlled type 2 diabetes, obesi ty, seasonal allergies Social History - Former smoker, quit over 20 yrs ago. D oes not vape. Drinks a few beers and mixed drinks occasionally/holidays. Denies recreational drug use - Has been making unhealthy dietary singh linda, including fast foods and high sodium. Walks regularly. Has difficulty staying asleep; sleeps an average of 4- 5 hrs; snores and has never had a sleep study Health maintenance - Last eye exam was about 3 years ago at [facility] - Last dental visit was about a ago; enc ouraged to schedule an appointment with his dentist for routine dental care. - Last tetanus vaccine was more than 10 years ago; received Tdap vaccine today - Has not been vaccinated for the flu ; declines vaccination - He has not been vaccinated for shingle s - Last colonoscopy was over 10 years ago . He was seen by [facility] gastroenterology on 05/05/2024 for pre colonoscopy screening. He notes he has not been contacted to schedule an appointment for a colonoscopy. 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 1. Little interest or pleasure in doing things: not at all 2. Feeling down, depressed, or hopeless: not at all 3. Trouble falling or staying asleep, or sleeping too much: more than half the days 4. Feeling tired or having little energy: several days 5. Poor appetite or overeating: not at all 6. Feeling bad about yourself - or that you are a failure or have let yourself or your family down: not at all 7. Trouble concentrating on things, such as reading the newspaper or watching television: not at all 8. Moving or speaking so slowly that other people could have noticed. Or the opposite - being so fidgety or restless that you have been moving around a lot more than usual: not at all 9. Thoughts that you would be better off or of hurting yourself in some way: not at all Total score: 3 Depression Screening Interpretation: Negative Depression Screening Done: Yes 84268 - PHQ-9 Billing: Yes Source: Developed by Drs. Danny Freitas, Rosi Anders, Hitesh Narvaez and colleagues, with an educational neisha from [employer]. Thrive Questionnaire Date Thrive assessed: 08/26/24 I am a: Patient What is your living situation today?: I have a steady place to live Within the past 12 months, did the food you bought not last and you didn't have the money to get more?: Never true Within the past 12 months, did you worry whether your food would run out before you got money to buy more?: Never true Do you have trouble paying for medicines?: No Do you have trouble getting transportation to medical appointments?: No Do you have trouble paying your heating and electricity bill?: No Do you have trouble taking care of your child, family member or friend?: No Do you have trouble with day-to-day activities such as bathing, preparing meals, shopping, managing finances, etc.?: No Are you currently unemployed and looking for a job?: No Are you interested in more education?: No Please select the resources that you would like help with: None Currently or been in a relationship where the following occur: No concerns reported and I choose not to answer THRIVE Score: 0 AUDIT C Alcohol Use Questionnaire (AUDIT-C) 1. How often do you have a drink containing alcohol?: Monthly or less 2. How many drinks containing alcohol do you have on a typical day when you are drinking?: 1 or 2 3. How often do you have six or more drinks on one occasion?: Never Total Score: 1 Score Reviewed/Action Taken: Yes WALESKA-7 AMB Questionnaire WALESKA-7 Date WALESKA - 7 assessed: 08/26/24 Feeling nervous, anxious, or on edge: 0 = Not at all Not being able to stop or control worryin = Not at all Worrying too much about different things: 0 = Not at all Trouble relaxin = Not at all Being so restless that it is hard to sit still: 0 = Not at all Becoming easily annoyed or irritable: 0 = Not at all Feeling afraid as if something awful might happen: 0 = Not at all Total WALESKA-7 score (0-4 normal; 5-9 mild; 10-14 moderate; 15-21 severe): 0 Source: Developed by Drs. Danny Freitas, Rosi Anders, Hitesh Narvaez and colleagues, with an educational neisha from [employer]. WALESKA-7 Assessment Billing WALESKA-7 Assessment Tool: WALESKA-7 Assessment 47838 Review of Systems Const Details: Denies chills, Denies fatigue, Denies fever(s), Denies headache(s) and Denies weakness HEENT Denies change in vision, Denies dizziness, Denies headache(s), Denies hearing loss, Denies nasal congestion, Denies sinus pain, Denies sinus pressure and Denies sore throat Card Denies chest pain, Denies lightheadedness, Denies dyspnea and Denies other (palpitations) Resp Denies cough, Denies dyspnea and Denies wheezing GI Denies abdominal pain, Denies melena, Denies hematochezia, Denies change in bowel habits, Denies dyspepsia and Denies nausea Denies hematuria and Denies dysuria Musc Denies abnormal gait, Denies myalgias, Denies arthralgias, Denies numbness and Denies tingling Skin/Breast Denies rash, Denies unusual bruising and Denies wounds Neuro Denies abnormal gait, Denies dizziness, Denies headache(s), Denies memory loss, Denies numbness, Denies Sensory deficit (Neuro), Denies tingling and Denies we akness Psych Denies anxiety, Denies depression and Denies memory loss Endo Denies cold intolerance, Denies fatigue, Denies heat intolerance, Denies polydipsia and Denies polyuria Fadi/Lymph Denies easy bleeding and Denies easy bruising Aller/Immun Denies wheezing Physical exam (Primary Care) Vital Signs: Last Vital Signs Temp 98.4 F 08/26/24 08:02 Pulse 64 08/26/24 08:02 Resp 16 08/26/24 08:02 BP 140/80 H 08/26/24 08:20 Pulse Ox 97 08/26/24 08:02 Oxygen Delivery Method Room Air 08/26/24 08:02 BMI result Body Mass Index 33.9 Tobacco/Smoking Status: Tobacco use Status Tobacco use date assessed 08/26/24 08/26/24 08:08 Patient Tobacco Use Status Former Tobacco user 08/26/24 07:55 e-Cigarette/Vaping Use Never Used 08/26/24 07:55 PHQ-9: PHQ-9 Score PHQ-9: Total score 3 08/26/24 12:43 Depression Screening Interpretation: Negative Thrive Assessment: Date of Thrive Assessment Date Thrive assessed 08/26/24 08/26/24 07:55 Currently or been in a relationship where the following occur: No concerns reported and I choose not to answer Const Other: General: no acute distress, well developed, alert and awake Nutritional Appearance: well nourished Orientation/consciousness: patient oriented x3 [facility] Head: Yes normocephalic and Yes atraumatic Ears: hearing grossly normal bilaterally and TM's normal bilaterally General nose exam: Normal external nose present and Normal nares present Mouth: Normal oral and palatal mucosa present and moist mucous membranes Teeth and gingiva: dentition normal Throat: Yes oropharynx normal Eyes Pupils: Equal, round and reactive pupils present and Pupil accommodation reflex normal EOM: EOMs intact bilaterally Neck Neck: Yes normal visual inspection, Yes no lymphadenopathy and Yes trachea midline Thyroid: Thyroid normal Carotids: no bruits Lymphatic: no lymphadenopathy noted Chest Chest palpation & inspection: normal inspection of the chest Resp Effort & Inspection: normal respiratory effort Auscultation: clear to auscultation bilaterally Cardio Rate: regular rate Rhythm: regular rhythm Heart sounds: S1 normal heart sound present, S2 normal heart sound present, no gallops, no murmurs and no rubs Bruits: no abdominal aortic bruits and no carotid bruits GI Palpation (GI): No Abdominal aortic bruit present, Soft to palpation, nontender, No hepatosplenomegaly present and No Rebound tenderness present Auscultation: normal bowel sounds General: Yes no CVA tenderness Back/Spine/Pelvis Back: no CVA tenderness Cervical Spine: cervical ROM normal and No Cervical spine tenderness Thoracic/Lumbar Spine: thoraco-lumbar ROM normal, No pain with thoraco-lumbar ROM, No thoracic spinal tenderness and No lumbar spinal tenderness Skin General: warm and dry. Normal skin color. Normal skin turgor Lesions: no lesions Rashes: no rashes Trauma: no lacerations or abrasions Wounds: no wounds Nails: normal Neuro General: patient oriented x3, gait normal and CN's II-XI intact bilaterally Cranial nerves: Yes Equal, round and reactive pupils present Cognition (Neuro): normal cognition Gait exam (Neuro): Normal gait present Motor exam (neuro): 5/5 motor strength present throughout Sensory Exam: No Sensory deficit (Neuro) Deep tendon reflexes (DTR's): Right patellar reflex intensity grade: 2+ and Left patellar reflex intensity grade: 2+ Extrem General: Yes normal to inspection, No edema and No calf tenderness Psych Appearance: grossly normal Affect: normal affect Attitude: cooperative Thought process: Normal thought process present Results AMB Hemoglobin A1c AMB Hemoglobin A1c 6.4 % Last Edit by Deepa Carcamo MA on 08/26/24 08:58 Immunizations Boostrix Tdap 2.5 Lf unit-8 mcg-5 Lf/0.5 mL intramuscular syringe Performing Provider: Cristian Brand CNP Performing Location: [facility] Administered by: Kendal Mckeon RN on 08/26/24 08:41 Dose Route Admin Location Dispensed Lot Number Expiration Date NDC Dog Hair Clipper 0.5 mL IM Left Deltoid 0.5 mL [id number] 11/25/26 [id number] [employer] VIS Given Date VIS Provided VIS Publication Date 08/26/24 Single Vaccine 20 Eligibility Eligibility Date Funding Source Not [facility] Eligible 08/26/24 Private Results Reviewed Results Reviewed: Laboratory Last Values Hgb A1c (Clinic) 6.4 % (4.0-6.0) H 08/26/24 08:52 Coding Level of Care Code Est Pt Level 4 (12406) Est Pt Prev Care 40-64y(04949) Diagnoses Normal physical examination, routine Z00.00 Type 2 diabetes mellitus E11.9 Hyperlipidemia E78.5 Elevated blood pressure reading without diagnosis of hypertension R03.0 Obesity (BMI 30-39.9) E66.9 Transaminitis R74.01 Sleep disturbance G47.9 Vaccine counseling Z71.85 Colon cancer screening Z12.11 Additional Codes WALESKA-7 Assessment Billing - WALESKA-7 Assessment Tool: WALESKA-7 Assessment 11543 ([id number]) PHQ-9 - 58738 - PHQ-9 Billing: Yes ([id number]) Assessment & Plan Assessment & Plan (1) Normal physical examination, routine: Code(s): Z00.00 - Encounter for general adult medical examination without abnormal findings Category: Medical Plan: No significant functional limitations noted. Healthy diet and routine exercise encouraged. The form fasting lipid and liver panel blood work a few days before next visit. Follow-up in 2 months for elevated blood pressure, transaminitis, and hyperlipidemia. Return sooner with symptoms or concerns. Verbalized understanding and agreed with the plan. (2) Type 2 diabetes mellitus: Code(s): E11.9 - Type 2 diabetes mellitus without complications Category: Medical Plan: A1c today 6.4%, within goal of less than 7.0%. Previous A1c was 5.9%. ADA diet and routine exercise encouraged. Last eye exam was about 3 years ago. Referred to Ophthalmology for diabetic retinal exam. Will recheck A1c in 3 months. Verbalized understanding and agreed with the plan. (3) Hyperlipidemia: Code(s): E78.5 - Hyperlipidemia, unspecified Category: Medical Plan: Recent triglycerides and LDL levels are slightly elevated, 162 and 108 respectively, HDL is slightly low, 39; previous lipid panel levels were normal. He has been consuming significant amount of unhealthy foods, including cheese and red meat. Advised to limit foods high in saturated fat and avoid foods high in trans fat. Routine exercise encouraged. Fast for 10-12 hours, may drink water, and performed lipid panel blood work 2-3 days before next visit. Follow- up in 2 months. Verbalized understanding and agreed with the plan. (4) Elevated blood pressure reading without diagnosis of hypertension: Code(s): R03.0 - Elevated blood-pressure reading, without diagnosis of hypertension Category: Medical Plan: Resting blood pressure is 140/80, above goal of less than 130/80. He has been consuming significant amount of salt. Low-sodium diet encouraged. Follow-up in 2 months. Verbalized understanding and agreed with the plan. (5) Obesity (BMI 30-39.9): Code(s): E66.9 - Obesity, unspecified Category: Medical Plan: He currently weighs 236 lb, BMI is 33.9. He has been consuming unhealthy foods. He declines referral to dietitian/thread drawer or weight management clinic at this time and notes that he will start making healthy lifestyle changes. Healthy diet and routine exercise encouraged. Follow-up as needed. Verbalized understanding and agreed with the plan. (6) Transaminitis: Code(s): R74.01 - Elevation of levels of liver transaminase levels Category: Medical Plan: Recent AST and ALT levels are slightly elevated, 41 and 61 respectively; previous levels were normal. Likely fatty liver due to poor diet. He has been making unhealthy dietary choices. Healthy diet and routine exercise encouraged. Will recheck liver enzymes in 2 months. Verbalized understanding and agreed with the plan. (7) Sleep disturbance: Code(s): G47.9 - Sleep disorder, unspecified Category: Medical Plan: He has difficulty staying asleep; sleeps an average of 4-5 hrs; snores and has never had a sleep study. Likely sleep apnea. Instructed on sleep hygiene. May take melatonin as needed. Referred to [facility] [place] [facility] for sleep study. Follow-up as needed. Verbalized understanding and agreed with the plan. (8) Vaccine counseling: Code(s): Z71.85 - Encounter for immunization safety counseling Category: Medical Plan: His last tetanus vaccine was over 10 years ago. He has never been vaccinated for shingles. Instructed on importance of vaccination and encouraged to get vaccinated for tetanus and shingles. Tetanus vaccine administered today. He may get the shingles vaccines from the local pharmacy. Verbalized understanding and agreed with the plan. (9) Colon cancer screening: Code(s): Z12.11 - Encounter for screening for malignant neoplasm of colon Category: Medical Plan: His last colonoscopy was over 10 years ago. He was seen by [facility] gastroenterology on 05/05/2024 for pre colonoscopy screening. He notes he has not been contacted to schedule an appointment for a colonoscopy. The biomedical equipment support specialist contact [facility] and was informed that they will work on getting the patient return for colonoscopy in August 2024; patient informed. Orders: Orders TDaP Immunization Today Z23 - Encounter for immunization Liver Panel 2 Months R74.01 - Elevation of levels of liver transaminase levels AMB Hemoglobin A1c Today Z13.9 - Encounter for screening, unspecified Lipid Panel 2 Months E78.5 - Hyperlipidemia, unspecified Referrals Ophthalmology Referral E11.9 - Type 2 diabetes mellitus without complications Sleep Medicine Referral G47.9 - Sleep disorder, unspecified
[2024-08-26 08:02] VITALS: BP 148/81; PULSE 64; RESP 16; TEMP 36.9; O2SAT 97; BMI 33.9
[2024-08-26 08:20] VITALS: BP 140/80
== END 2024-08-26 08:41 | disposition home or self-care (01) ==
LOC: HO.HMCFM 07:45
PROVIDERS: PCP Nurse Practitioner Family; Visit Provider Nurse Practitioner Family
DX: Z00.00 Encounter for general adult medical examination without abnormal findings (principal); E11.69 Type 2 diabetes mellitus with other specified complication; E78.5 Hyperlipidemia, unspecified; E66.9 Obesity, unspecified; Z68.33 Body mass index [BMI] 33.0-33.9, adult; R03.0 Elevated blood-pressure reading, without diagnosis of hypertension; R74.01 Elevation of levels of liver transaminase levels; G47.9 Sleep disorder, unspecified; Z71.85 Encounter for immunization safety counseling; Z12.11 Encounter for screening for malignant neoplasm of colon; Z23 Encounter for immunization

== ENCOUNTER → 2024-08-26 07:44 | Outpatient (BNVA) | payer OTHER, SELFPAY | PROVIDERS: PCP Nurse Practitioner Family; Visit Provider Nurse Practitioner Family | DX: Z00.00 Encounter for general adult medical examination without abnormal findings (principal); E11.9 Type 2 diabetes mellitus without complications; E66.9 Obesity, unspecified; J30.2 Other seasonal allergic rhinitis; E78.5 Hyperlipidemia, unspecified; R03.0 Elevated blood-pressure reading, without diagnosis of hypertension; G47.9 Sleep disorder, unspecified; Z71.85 Encounter for immunization safety counseling; Z68.33 Body mass index [BMI] 33.0-33.9, adult | CPT/HCPCS: 83036; 90471; 90715; 96127; 99212; 99396 ==

== ENCOUNTER 2024-10-06 07:44 | Day surgery (SDC) | payer OTHER, SELFPAY ==
--- OUTSIDE RECORDS SUMMARY | 2024-09-08 09:15 | XMS_ITS | Clinical Summary ---
Author Organization [employer] Address [address] [place] [address] [address] [place] [address] Care Team Providers Care Calender Supervisor Name Role Phone Unavailable Primary Care Provider [...] 2023 07/08/2021, 03/06/2021, 07/30/2020, Additional history exists Hepatitis B Vaccines (1 of 3 - Risk 3-dose series) 2024 Tobacco Screening 09/03/2024 09/04/2023 Dental X-Ray: Full Mouth 09/29/2024 09/28/2021, 09/01 Influenza Vaccine (Season Ended) 2024 02/02/2023, 01/15/2022, 12/24/2020 RSV Patients and Patients Aged 60 years [...] Most Recently Relevant to Health Maintenance Insurance [facility] - HSN PARTIAL (MEDICAID)
--- NOTE | 2024-10-01 14:13 | P.CONAN_ITS ---
Documented by User: Yolanda Pantoja NP 10/01/24 14:14 HPI - Anesthesia Eval Consult details Narrative: 59yo M for Colonoscopy PMFSH Active Problems Active Problems: All Active Problems Vaccine counseling (Acute) Sleep disturbance (Acute) Transaminitis (Acute) Obesity (BMI 30-39.9) (Acute) Hyperlipidemia (Acute) Musculoskeletal chest pain (Acute) Colon cancer screening (Acute) Toothache (Acute) Chronic low back pain (Acute) Normal physical examination, routine (Acute) Elevated blood pressure reading without diagnosis of hypertension (Acute) Viral upper respiratory illness (Acute) Laboratory tests ordered as part of a complete physical exam (CPE) (Acute) Type 2 diabetes mellitus (Acute) Past Medical History Medical History Back disorder Type 2 diabetes mellitus Sinusitis Family History Family History Mother Asthma High blood pressure High cholesterol Diabetes Other Type 2 diabetes mellitus Surgical History Surgical History H/O colonoscopy Social History Social History Housing: House Patient Tobacco Use Status: Former Tobacco user e-Cigarette/Vaping Use: Never Used Second Hand Smoke Exposure: Yes Use of substances other than those prescribed or required for medical reasons: No Are you DNR?: No Advance Directives: No Advance Directives Information Provided: Yes Poor oral hygiene: No service: No Current occupational status: employed 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 [employer] Cognitive needs: No Hearing needs: No Vision needs: Yes Meds Allergies Allergy/AdvReac Type Severity Reaction Status Date / Time Seasonal Allergies Allergy Intermediate Nasal Verified 08/26/24 08:09 congestion Assessment and Plan Assessment Anesthesia Assessment: Chart Reviewed Documented by User: Kimberly Strickland MD 10/06/24 08:46 PMFSH Past Medical History Medical History Back disorder Type 2 diabetes mellitus Sinusitis Family History Family History Mother Asthma High blood pressure High cholesterol Diabetes Other Type 2 diabetes mellitus Surgical History Surgical History H/O colonoscopy History of Problems with Anesthesia: No Social History Social History Housing: House Patient Tobacco Use Status: Former Tobacco user e-Cigarette/Vaping Use: Never Used Second Hand Smoke Exposure: Yes Use of substances other than those prescribed or required for medical reasons: No Are you DNR?: No Advance Directives: No Advance Directives Information Provided: Yes Poor oral hygiene: No service: No Current occupational status: employed 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 [employer] Cognitive needs: No Hearing needs: No Vision needs: Yes Meds Allergies Allergy/AdvReac Type Severity Reaction Status Date / Time Seasonal Allergies Allergy Intermediate Nasal Verified 08/26/24 08:09 congestion Exam Airway Mallampati Class: III TM Dist: >3cm Neck ROM: Full Loose/Missing/Broken Teeth: No Heart: RRR Lungs: CTA Assessment and Plan Assessment Anesthesia Assessment: Anesthesia Plan Discussed Final Anesthetic Review History of Problems with Anesthesia: No NPO: Yes ASA Class: II Final Preanesthetic Review: Meds/Allgs Chart Reviewed, Consent Obtained/Reviewed and Anes Risks/Benef Reviewed Patient Risk: Low Procedure Risk: Low Anesthetic Plan Anesthetic Plan: MAC: Disposition: Standard PACU
[2024-10-01 14:21] VITALS: BMI 32.9
[2024-10-06 08:12] VITALS: BMI 31.4
--- NOTE | 2024-10-06 08:24 | MHC.SHP ---
Pre-Procedural Eval Section A - 24 Hr Update-Section A only Date of Service: 10/06/24 The patient is an INPATIENT: No The patient has been examined within 24 hours of the surgical procedure. The History & Physical has been completed within 30 days and I have reviewed it.: No Section B - Complete if H&P > 30 days Chief Complaint: Colon cancer screening Relevant Family History (Specify if Yes): No Relevant Social History: None Present Medications: see Short Stay Collaborative assessment Medical History: Significant History (Back disorder Type 2 diabetes mellitus Sinusitis) History of Previous Operations: Relevant previous surgery/procedure and date(s) (History of colonoscopy) Allergies: Allergies Allergy/AdvReac Type Severity Reaction Status Date / Time Seasonal Allergies Allergy Intermediate Nasal Verified 08/26/24 08:09 congestion Review of Systems Sugical H&P ROS: Negative: Constitution, Cardiovascular, Respiratory and Gastrointestinal Exam Surgical H&P Exam: Normal: Heart, Normal: Lungs, Normal: Extremities and Normal: Abdomen Plan Diagnosis/Plan: Unchanged I have reviewed the history and physical and performed a pertinent physical examination on my patient. No changes have occurred unless specified. Time Spent With Patient Time: Total time managing care of this patient today ____ minutes.
[2024-10-06 08:25] VITALS: BP 143/82; PULSE 57; RESP 16; TEMP 36.2; O2SAT 97
[2024-10-06] MEDS: Lactated Ringers 1,000 ML 100 ML IVCONT (08:36)
--- NOTE | 2024-10-06 09:25 | P.OPN-COLO_ITS ---
Colonoscopy Operative Note Operative Note Date of Service: 10/06/24 Narrative: COLONOSCOPY TILL CECUM WITH BIOPSIES AND SNARE POLYPECTOMY Pre-op diagnosis: Colon cancer screening (2ND COLONOSCOPY). Post-op diagnosis:? Colon polyps, Diverticulosis, hemorrhoids Endoscopist:? Haleigh Muller MD Anesthesia:?MAC Consent: Indications for the procedure and potential complications of bleeding, perforation, reaction to medications and missed diagnosis were discussed with the patient and informed consent was obtained. Instrument: Olympus CF H 190 L variable stiffness adult colonoscope Monitoring: Vital signs and clinical assessment, intermittent blood pressure monitoring, continuous EKG monitoring, Pulse oximetry and Carbon Dioxide monitoring were done throughout the procedure. Please see anesthesia flowsheet. Colon withdrawl time was 20 minutes. Procedure: The patient was placed in the left lateral decubitis position and pre-procedure medications were administered. After a digital rectal examination of the ano-rectum, the video colonoscope was inserted into the rectum and advanced through the colon to the cecum. The colonoscope was slowly withdrawn in a retrograde panoramic fashion and the colon mucosa was carefully examined including a retroflexed view of the rectum. Findings and interventions are described below. Procedure Difficulty: without difficulty Findings: Terminal Ileum: Distal 5 cm was examined and appeared normal Cecum: A few 2-3 mm aphthoid ulcers in the cecum - biopsies were obtained Ascending Colon: Normal Transverse Colon: Normal Descending Colon: Two 5-6 mm sessile polyps - 1 removed with a cold snare. Second polyp was removed with a cold biopsy. Sigmoid Colon: Moderate diverticulosis Rectum: Normal Ano-rectum: Moderate internal hemorrhoids Colon preparation: Good after some irrigation. [place] Bowel Preparation Scale Right colon; 2 Transverse colon: 2 Left colon; 2 (0 = Unprepared colon segment with mucosa not seen due to solid stool that cannot be cleared. 1 = Portion of mucosa of the colon segment seen, but other areas of the colon segment not well seen due to staining, residual stool and/or opaque liquid. 2 = Minor amount of residual staining, small fragments of stool and/or opaque liquid, but mucosa of colon segment seen well. 3 = Entire mucosa of colon segment seen well with no residual staining, small fragments of stool or opaque liquid) Impression and Post Procedure Diagnosis: Colonoscopy Findings: Two small polyps were removed A few 2-3 mm aphthoid ulcers in the cecum (likely due to NSAID use) - biopsies were obtained Moderate diverticulosis seen in the sigmoid colon Moderate hemorrhoids on retroflexed exam. Plan: I will send a letter with biopsy results. Repeat Colonoscopy in 5 years if polyps are adenomatous and 10 year if polyps are hyperplastic. Above findings were reviewed with the patient and relevant handouts were given and the discharge area.
[2024-10-06 09:27] VITALS: BP 107/63; PULSE 58; RESP 18; TEMP 37.1; O2SAT 98
[2024-10-06 09:40] VITALS: BP 112/74; PULSE 79; RESP 18; O2SAT 98
[2024-10-06 09:49] VITALS: BP 128/82; PULSE 64; RESP 18; TEMP 36.6; O2SAT 96
== END 2024-10-06 10:09 | disposition home or self-care (01) ==
PROVIDERS: PCP Nurse Practitioner Family; Visit Provider Internal Medicine Gastroenterology
PROC: 0DJD8ZZ Inspection of Lower Intestinal Tract, Via Natural or Artificial Opening Endoscopic (ICD-10-PCS; CPT 45378; principal; 2024-10-06 09:10)
DX: Z12.11 Encounter for screening for malignant neoplasm of colon (principal); D12.4 Benign neoplasm of descending colon; K57.30 Diverticulosis of large intestine without perforation or abscess without bleeding; K64.8 Other hemorrhoids; K12.0 Recurrent oral aphthae; E11.9 Type 2 diabetes mellitus without complications; E78.5 Hyperlipidemia, unspecified; Z87.891 Personal history of nicotine dependence
CPT/HCPCS: 45385; 45380; 88305; J2003; J2704

== ENCOUNTER → 2024-10-06 07:44 | Outpatient (BNV) | payer OTHER, SELFPAY | PROVIDERS: PCP Nurse Practitioner Family; Visit Provider Internal Medicine Gastroenterology | DX: Z12.11 Encounter for screening for malignant neoplasm of colon (principal); K63.3 Ulcer of intestine; K57.30 Diverticulosis of large intestine without perforation or abscess without bleeding; K64.8 Other hemorrhoids; D12.4 Benign neoplasm of descending colon | CPT/HCPCS: 45380; 45385 ==

== ENCOUNTER 2024-10-27 07:49 | Outpatient (REF) | payer OTHER, SELFPAY ==
--- OUTSIDE RECORDS SUMMARY | 2024-10-27 07:50 | XMS_ITS | Clinical Summary ---
Author Organization [employer] Address [address] [place] [address] [address] [place] [address] Care Team Providers Care Insurance Billing Specialist Name Role Phone Unavailable Primary Care [...] Full Mouth 09/29/2024 09/28/2021, 09/01 Influenza Vaccine (#1) 2024 , 01/15/2022, 12/24/2020 RSV Patients and Patients Aged [...]
[2024-10-27 12:01] LABS: Alanine Aminotransferase 55 U/L (0-40); Albumin Level 4.3 g/dL (3.5-5.0); Alkaline Phosphatase 66 U/L (39-117); Aspartate Amino Transferase 37 U/L (5-37); Cholesterol 168 mg/dL (<200); HDL Cholesterol 37 mg/dL (>40); Total Protein 6.9 g/dL (6.5-8.0); Triglycerides 163 mg/dL (<150)
== END 2024-10-27 07:50 | disposition home or self-care (01) ==
LOC: HO.WFDLDS 07:49
PROVIDERS: Visit Provider Nurse Practitioner Family
DX: R74.01 Elevation of levels of liver transaminase levels (principal); E78.5 Hyperlipidemia, unspecified
CPT/HCPCS: 36415; 80061; 80076